=== PATIENT | female | born 1990 | race Caucasian/White ===

== ENCOUNTER 2016-08-26 08:22 | Day surgery (SDC) | payer OTHER ==
--- NOTE | ~2016-08-26 | OP ---
Record Of Operation [facility] [address] [place]. [address] NAME: TAMI OSPINA : 89 STATUS : [facility]#: [id number] AGE: 25 ADM/REG DATE : 08/26/16 MR#: [id number] REPORT SERV DATE: 08/27/16 DICTATED BY: LYNDON DYER JR. DATE: 08/26/16 REPORT STATUS : Draft TRANSCRIBED BY: ALEX DATE: 08/26/16 DATE OF PROCEDURE: 08/26/2016 NAME OF OPERATION: Open reduction broad fracture, left orbit. PREOPERATIVE DIAGNOSIS: Broad fracture, left orbit. POSTOPERATIVE DIAGNOSIS: Broad fracture, left orbit. OPERATIVE FINDINGS: The patient has broad fracture of the left orbit, fatty tissue in the left antrum with some scarring. DESCRIPTION OF PROCEDURE: The patient was brought to the operating room, placed supine position. She was given general anesthesia and after satisfactory level of anesthesia has been obtained, the face was prepared and draped in the usual manner. The point of incision and the lower eyelid was infiltrated with 1% Xylocaine with epinephrine. The mucosal incision in the left side was likewise infiltrated with anesthesia for hemostatic purposes. After the effect of the epinephrine on the was noted. An incision was made in the lower eyelid. Incision was carried down to the infraorbital rim and the periosteum was incised using the periosteal elevator. The periosteum was elevated and the floor of the orbit was exposed, and then inspected. Using a B[place] elevator the entrapped tissue and fatty tissue were freed from the fracture site. Total removal of the entrapped tissue was not possible on the floor of the orbit, so at this point, an incision was made in the left mucosa to expose the anterior wall of the antrum. The periosteum was likewise elevated and using an osteotome, a hole was created on the anterior wall of the antrum with the osteotome. This was enlarged with right-angled bone cutter. The hole in the anterior wall of the antrum was enlarged enough to accommodate the track moving machine operator's little finger which was inserted and to inspect the defect. The fatty tissue that was entrapped inside the left under was then pushed into the orbit and the bony fragment was reduced. The left antrum was then packed with 1-1/2 inch iodoform gauze. The floor of the orbit was again inspected and the rest of the tissue was freed from the fracture site. Using forceps the entrapment was checked and freed. The packing in the left antral cavity was then anchored to the mucosa with one 5-0 black silk suture. The rest of the iodoform gauze was trimmed. The lower eyelid incision was then closed with a running suture using 6-0 Prolene suture. Neosporin ointment was applied to the wound. The operation ended. The patient tolerated the procedure well. She was brought back to recovery room in satisfactory condition. WILLIAM/ALEX Lyndon Dyer Jr., M.D. / [id number] Record Of Operation [address] [address] NAME: TAMI OSPINA : 89 STATUS : [facility] PAT#: [id number] AGE: 25 ADM/REG DATE : 08/26/16 MR#: [id number] REPORT SERV DATE: 08/27/16 DICTATED BY: LYNDON DYER JR. DATE: 08/26/16 REPORT STATUS : Draft TRANSCRIBED BY: ALEX DATE: 08/26/16 CC: Stanton Calderon Jr., M.D.
[2016-08-26 09:05] LABS: BASOPHILS 0.7 %; BASOPHILS ABSOLUTE 0.06 10/3/uL (0.0-0.16); EOSINOPHILS 5.9 %; EOSINOPHILS ABSOLUTE 0.49 10/3/uL (0.0-0.53); HEMATOCRIT 39.2 % (36.0-48.0); HEMOGLOBIN 13.1 g/dL (12.0-16.0); IMMATURE GRANULOCYTES 0.1 %; IMMATURE GRANULOCYTES ABSOLUTE 0.01 10/3/uL (0.0-0.11); LYMPHOCYTES 33.2 %; LYMPHOCYTES ABSOLUTE 2.77 10/3/uL (0.67-4.30); MEAN CORPUS HGB CONC 33.4 g/dL (32.0-36.0); MEAN CORPUSCULAR HEMOGLOB 28.7 pg (26.0-34.0); MEAN CORPUSCULAR VOLUME 85.8 fL (80-100); MEAN PLATELET VOLUME 9.5 fL (9.2-13.0); MONOCYTES 6.8 %; MONOCYTES ABSOLUTE 0.57 10/3/uL (0.21-1.20); NEUTROPHILS 53.3 %; NEUTROPHILS ABSOLUTE 4.44 10/3/uL (2.02-8.40); PLATELET COUNT 377 10/3/uL (150-400); RBC DISTRIBUTION WIDTH 12.7 % (12.0-16.0); RED CELL COUNT 4.57 10/6/uL (4.0-5.6); WHITE BLOOD CELLS 8.3 10/3/uL (4.5-10.5)
[2016-08-26 09:07] LABS: MANUAL DIFF NO %
[2016-08-26 09:18] LABS: ASCORBIC ACID (UR NOT ORDER) NEG (NEG); BILIRUBIN, URINE NEGATIVE (NEG); KETONE, URINE NEGATIVE (NEG); LEUKOCYTE ESTERASE(NOT OR LARGE (NEG); WBC (NOT ORDERED) (RFLEX) 57 (0-5)
[2016-08-26 10:33] LABS: AMPHETAMINES (NOT ORD) NEG (NEG); BARBITURATES (NOT ORDERED NEG (NEG); BENZODIAZEPINES (NOT ORD) NEG (NEG); CANNABINOIDS (THC) NEG (NEG); COCAINE (NOT ORDERED) NEG (NEG); OPIATES NEG (NEG); PHENCYCLIDINE(PCP) NEG (NEG); TRICYCLICS NEG (NEG)
== END 2016-08-26 15:59 | disposition home or self-care (01) ==
LOC: SDC 08:22
PROVIDERS: Family Medicine
PROC: 0NSQ0ZZ Reposition Left Orbit, Open Approach (ICD-10-PCS; principal; 2016-08-26 09:45)
DX: S02.32XA Fracture of orbital floor, left side, initial encounter for closed fracture (principal); J45.909 Unspecified asthma, uncomplicated; F41.9 Anxiety disorder, unspecified; F32.9 Major depressive disorder, single episode, unspecified; M19.90 Unspecified osteoarthritis, unspecified site; F12.90 Cannabis use, unspecified, uncomplicated; V89.2XXA Person injured in unspecified motor-vehicle accident, traffic, initial encounter
CPT/HCPCS: 80305; 81001; 84703; 85025; 87077; 87086; 87186; A9270-GY; J0690; J1170; J2250; J2370; J2405; J2710; J3010